=== PATIENT | female | born 1960 | race Caucasian/White ===

== ENCOUNTER 2017-08-11 10:44 | Observation (INO) | payer OTHER ==
[~2017-08-11] VITALS: Ht 165.1 cm; Wt 64.8 kg
[~2017-08-11 10:44] MED LIST: ADVIL200 MG PO; ASPIR-LOW81 MG PO; ATORVASTATIN CA80 MG PO; CYMBALTA30 MG PO; LUNESTA3 MG PO; NICOTINE PATCH1 EAC2 TD; NUCYNTA75 MG PO; PERCOCET 5/31 TABLET PO; REQUIP3 MG PO; ULTRAM50 MG PO; ZOFRAN ODT4 MG PO
[2017-08-11 11:12] LABS: EOSINOPHIL (%) 1.6 % (0-5); EOSINOPHIL COUNT 0.1 K/uL (0-0.3); HEMATOCRIT 45.5 % (36.0-46.0); IMMATURE GRANULOCYTE (%) 0.1 % (0.0-0.7); INSTRUMENT ABS NEUTROPHIL CT 4.1 K/uL; LYMPHOCYTE COUNT 3.3 K/uL (1.0-2.8); MCH 29.9 PG (29.0-34.0); MCHC 33.6 G/DL (30.0-36.0); MCV 88.9 FL (83-99); MEAN PLAT.VOLUME 10.3 uM^3 (9.5-12.4); MONOCYTE (%) 11.5 % (3-12); NEUTROPHIL (%) 47.9 % (45-76); NEUTROPHIL COUNT 4.1 K/uL (1.8-6.4); PLATELET COUNT 232 K/uL (156-360); RBC DIS.WIDTH-CV 12.8 % (11.8-14.6); RBC DIS.WIDTH-SD 42.1 % (39-53); RED BLOOD COUNT 5.12 M/uL (3.80-5.20); WHITE BLOOD COUNT 8.5 K/uL (4.1-10.2)
[2017-08-11 11:18] LABS: INTER. NORMALIZED RATIO 0.9; PROTHROMBIN TIME 10.7 SEC (10.2-12.9)
[2017-08-11 11:20] LABS: PTT 34.6 SEC (25-37)
[2017-08-11 11:21] LABS: AMYLASE 64 IU/L (1-118); CHLORIDE 107 mEq/L (99-109)
[2017-08-11 11:22] LABS: POTASSIUM 4.3 mEq/L (3.7-5.4); SODIUM 138 mEq/L (136-147)
[2017-08-11 11:23] LABS: GLUCOSE 94 mg/dL (70-99)
[2017-08-11 11:25] LABS: ANION GAP 9 MEQ/L (2-14)
[2017-08-11 11:26] LABS: SERUM ETHYL ALCOHOL < 10 mg/dL
[2017-08-11 11:27] LABS: GFR ESTIMATE (CALCULATED) > 59 mL/min/
[2017-08-11 11:28] LABS: UREA NITROGEN (BUN) 11 mg/dL (9-23)
[2017-08-11 11:30] LABS: LIPASE 47 U/L (1.0-51.0)
[2017-08-11 11:33] LABS: TROP-I INTERPRETATION NEGATIVE; TROPONIN-I < 0.01 ng/mL (0.0-0.30)
[2017-08-11 11:36] LABS: QUANTITATIVE HCG < 4.0 MIU/ML
[2017-08-11 11:37] LABS: Estimated Average Glucose 128 mg/dL (70-123); HEMOGLOBIN A1c (GLYCOHEMOGLOB) 6.1 % HGB (Below 5.7)
[2017-08-11 13:07] LABS: HDL CHOLESTEROL 48 MG/DL (Desirable>=50); LDL CHOLESTEROL 108 mg/dL (Desirable<100); NON-HDL CHOLESTEROL 140 mg/dL (Desirable<160); TOTAL CHOLESTEROL 188 mg/dL (Desirable<200); TRIGLYCERIDES 158 MG/DL (Normal: <150)
[2017-08-11] MEDS ORDERED: DESYREL100 MG PO (13:48)
[2017-08-11] MEDS ORDERED: RESTASIS MULTI5.5 ML BOTH EYES (13:49)
[2017-08-11] MEDS ORDERED: CHANTIX1 EACH PO (13:50)
[2017-08-11] MEDS ORDERED: ADVIL200 M1 PO (13:50)
[2017-08-11 15:24] VITALS: BP 118/66
[2017-08-11 18:38] LABS: TROP-I INTERPRETATION NEGATIVE; TROPONIN-I < 0.01 ng/mL (0.0-0.30)
[2017-08-11 19:00] VITALS: BP 117/76
[2017-08-11 23:00] VITALS: BP 121/69
[2017-08-12 00:41] LABS: TROP-I INTERPRETATION NEGATIVE; TROPONIN-I < 0.01 ng/mL (0.0-0.30)
[2017-08-12 03:50] VITALS: BP 120/69
[2017-08-12 08:00] VITALS: BP 130/75
[2017-08-12] MEDS ORDERED: ASPIR-LOW81 MG PO (10:46)
[2017-08-12] MEDS ORDERED: ATORVASTATIN CA40 MG PO (10:48)
[2017-08-12 11:23] VITALS: BP 149/96
== END 2017-08-12 11:53 | disposition home or self-care (01) ==
LOC: EME 10:44 → EDOF 12:39 → ENRESERV 12:40 → 5WEST 15:10
PROVIDERS: Emergency Medicine; Internal Medicine
DX: G45.9 Transient cerebral ischemic attack, unspecified (principal); F17.210 Nicotine dependence, cigarettes, uncomplicated; Z86.73 Personal history of transient ischemic attack (TIA), and cerebral infarction without residual deficits; Z79.82 Long term (current) use of aspirin
CPT/HCPCS: 70450; 70551; 80048; 80061; 81003; 82150; 83036; 83690; 84484; 84702; 85025; 85610; 85730; 86850; 86900; 86901; 93005; 93306; 93880; 99281; 99284; G0378; G0480; J1650